=== PATIENT | female | born 1930 | race Two or more races ===

== ENCOUNTER 2019-09-28 11:06 | Emergency (ER) | payer OTHER ==
[~2019-09-28] VITALS: Ht 152.4 cm; Wt 55.8 kg
[2019-09-28] MEDS ORDERED: SYNTHROID50 MCG (11:27)
[2019-09-28] MEDS ORDERED: AMLODIPINE 10 MG (11:27)
[2019-09-28] MEDS ORDERED: IMBRUVICA140 MG (11:28)
[2019-09-28] MEDS ORDERED: CLONAZEPAM0.5 MG (11:28)
[2019-09-28] MEDS ORDERED: BENADRYL25 MG (11:28)
== END 2019-09-28 14:46 | disposition home or self-care (01) ==
LOC: ER 11:06
DX: R42 Dizziness and giddiness (principal)